=== PATIENT | male | born 1975 | race Caucasian/White ===

== ENCOUNTER 2023-10-16 07:02 | Emergency (ER) | payer BC, SELFPAY ==
[2023-10-16 07:13] VITALS: BP 158/100; PULSE 86; RESP 20; TEMP 36.6; O2SAT 96; BMI 28.2
--- NOTE | 2023-10-16 07:19 | XR_ITS ---
Patient: TERESA GONGORA Facility:?[facility] Patient ID:?[id number] Site Patient ID:?[id number]. Site :?[id number] Study:?XRay-Extremity Right 3V ANKLE-10/16/2023 7:35:35 AM Ordering Physician:?DR. LOJA Final Report: INDICATION: Right ankle injury COMPARISON: None. TECHNIQUE: Three views right ankle FINDINGS: No fracture. Normal alignment. Joint spaces are normal. No focal bone lesions. Normal bone mineralization. Soft tissue swelling. No foreign body. IMPRESSION: Right ankle soft tissue swelling. No fracture or dislocation. Dictated by Lakeisha Gerardo MD @ 10/16/2023 8:51:27 AM Signed by:?Lakeisha Gerardo MD @10/16/2023 8:51:27 AM (Electronic Signature)
--- NOTE | 2023-10-16 07:49 | ED_ITS ---
HPI - General Adult General Chief complaint: Extremity Pain/Injury, Lower Stated complaint: right ankle injury Time Seen by Provider: 10/16/23 07:41 Source: patient Mode of arrival: ambulatory History of Present Illness HPI narrative: 48-year-old male presents the emergency department with a 3 day history of pain in the lateral lower right ankle. Pain is achy in nature, worse with ambulation. Rolled his ankle while stepping down his RV steps a few days ago. Initially assumed he sprained it but since things are not improving, he is concerned that it could be fractured and presents to the emergency department for evaluation. No fever, no other areas of injury. Tried taking 500 mg of Tylenol 2 times total yesterday, no ibuprofen. Did purchase an ankle brace, does not seem to be helping significantly. Has not tried crutches. No other arthralgias. No fevers or signs of infectious etiology. Bruising inferior to the right lateral malleolus, pain is located on the lateral malleolus. No other areas of pain on the foot or ankle. Past medical history notable for anxiety, only home medications Lexapro. No known drug allergies. ROS notable for no other skin, neurological musculoskeletal or generalized changes. Related Data Home Medications Medication Instructions Recorded Confirmed escitalopram oxalate 20 mg tablet 20 mg PO DAILY 10/16/23 10/16/23 Allergies Allergy/AdvReac Type Severity Reaction Status Date / Time No Known Drug Allergies Allergy Verified 10/16/23 07:13 Exam Const: Vital Signs, click to edit/add: Vital Signs - 24 hr 10/16/23 07:13 Temperature 97.8 F Pulse Rate [Pulse Oximeter] 86 Respiratory Rate 20 Blood Pressure [Ri ght Upper Arm] 158/100 H Pulse Oximetry 96 Oxygen Delivery Me thod Room Air Documenting provider has reviewed patient's vital signs: yes Other: Anxious but appropriate. Good historian. Eye: Other: Eyes appear normal with good eye contact. Neck & C-Spine: General: normal visual inspection Resp: Common normals: normal respiratory effort Effort & inspection: able to speak in complete sentences Extremity: Other: Left ankle with normal range of motion, no point bony tenderness, no effusion or bruising. Right ankle with very small effusion around the lateral malleolus. Mild bruising around the lateral malleolus. No swelling to the ankle mortise, medial malleolus or 5th metatarsal. No tenderness to the 5th metatarsal, ankle mortise or medial malleolus. There is some mild tenderness to palpation of the lateral malleolus and the deltoid ligament areas. Toes appear normal. Forefoot and midfoot normal. Heel and Achilles area are also normal to range of motion, palpation and appearance. Normal dorsalis pedis pulses bilaterally. Psych: Common normals: speech normal Activity/motor behavior: appropriate eye contact Speech: normal speech Attention/concentration: attention grossly intact Memory/cognition: memory grossly intact Insight: insight good Judgement: judgment good Skin: Narrative: Other than the mild bruising of the right ankle, no other areas of trauma or injury. Old healed scar on upper right ankle consistent with his reported history of laceration as a young man. Course Course ED Course: Exam suggestive of sprain, mild in nature. Differential diagnosis also includes ligamentous injury, fracture, less likely gout or infection. Recommend x-ray. Oral Toradol for pain, await findings. May require brace and/or crutches if unable to ambulate. Reevaluation(s) Time of Reevaluation #1: 08:57 Reevaluation #1: Discussed findings with patient. No signs of fracture. Mild sprain only. Will be placed in air cast, he declines crutches. Counseled on Tylenol and ibuprofen for pain control. It is okay to stand and ambulate. Wear the brace for 2 weeks. If not improving in 2 weeks, orthopedic follow-up. Expect 4-6 weeks of total symptoms. Vital Signs Vital signs: Initial Vital Signs Temperature 97.8 F 10/16/23 07:13 Temperature Source Temporal Artery Scan 10/16/23 07:13 Pulse Rate 86 10/16/23 07:13 Respiratory Rate 20 10/16/23 07:13 Blood Pressure 158/100 H 10/16/23 07:13 Blood Pressure Mean 119 H 10/16/23 07:13 Pulse Oximetry 96 10/16/23 07:13 Oxygen Delivery Method Room Air 10/16/23 07:13 Vital Signs Temperature 97.8 F 10/16/23 07:13 Pulse Rate 86 10/16/23 07:13 Respiratory Rate 20 10/16/23 07:13 Blood Pressure 158/100 H 10/16/23 07:13 Pulse Oximetry 96 10/16/23 07:13 Oxygen Delivery Method Room Air 10/16/23 07:13 Temperature 97.8 F 10/16/23 07:13 Pulse Rate 86 10/16/23 07:13 Respiratory Rate 20 10/16/23 07:13 Blood Pressure 158/100 H 10/16/23 07:13 Pulse Oximetry 96 10/16/23 07:13 Oxygen Delivery Method Room Air 10/16/23 07:13 Medications Administered Medications: Discontinued Medications Generic Name Dose Route Start Last Admin Trade Name Ginger PRN Reason Stop Dose Admin Ketorolac Tromethamine 10 mg 10/16/23 07:47 10/16/23 08:03 Ketorolac 10 Mg Tablet PO 10/16/23 07:48 10 mg ONCE ONE Administration Medical Decision Making Imaging Data Ankle x-ray: Attestation: I have reviewed the pertinent imaging results. My impression: No signs of fracture. No large effusion. Some calcaneus spurs, not unexpected for age. Radiologist's impression: IMPRESSION: Right ankle soft tissue swelling. No fracture or dislocation. Discharge Plan Discharge Clinical Impression: Ankle sprain and strain Patient Disposition: Home, Self-Care Condition: Stable Instructions: Ankle Sprain (ED) Additional Instructions: As discussed, there are no signs of fracture on x-ray. Sprains certainly take longer to heal than when we are younger. I recommended ankle brace, supportive style with rigid sides for the next 2 weeks. Use crutches if needed, but this is not likely to be necessary. For pain, proper dosing of Tylenol is 1000 mg every 6 hours. Proper dosing of ibuprofen is 600 mg every 6 hours. You may alternate between the 2 every few hours as needed. Remove your brace to sleep and rest. If things are not improving 2 weeks from now, make a follow-up appointment with her primary care provider or patient services specialist. Activity Level: Activity as Tolerated Discharge Diet: Regular Prescriptions: No Action escitalopram oxalate 20 mg tablet 20 mg PO DAILY Follow Up/Referrals: Daniel Pena MD [Staff Physician] - Stand Alone Forms: [employer] Info Instructions
[2023-10-16] MEDS: KETOROLAC 10 MG TABLET PO (08:03)
== END 2023-10-16 09:33 | disposition home or self-care (01) ==
PROVIDERS: Emergency Provider Family Medicine
DX: S93.401A Sprain of unspecified ligament of right ankle, initial encounter (principal); X50.1XXA Overexertion from prolonged static or awkward postures, initial encounter
CPT/HCPCS: 73610; 99283; A9270